=== PATIENT | female | born 1970 | race Caucasian/White ===

== ENCOUNTER 2022-11-06 14:51 | Inpatient (IN) | payer OTHER ==
[2022-11-06] MEDS ORDERED: ONDANSETRON 4 MG/2 ML VIAL IVPUSH ONE ×2 (17:16→22:59)
[2022-11-06] MEDS ORDERED: LACTATED RINGERS SOLUTION 1000 ML INFUS.BAG IV ONE (17:16)
[2022-11-06] MEDS ORDERED: FAMOTIDINE 20 MG/50 ML IVPB 20 MG/50 ML MG IVPB ONE ×2 (17:16→18:07)
[2022-11-06] MEDS ORDERED: MAG HYDROX/AL HYDROX/SIMETH 30 ML UNIT-DOSE CUP PO ONE (17:16)
[2022-11-06] MEDS ORDERED: MAG HYDROX/AL HYDROX/SIMETH 30 ML UNIT-DOSE CUP ONE (18:06)
[2022-11-06 18:37] LABS: PH,URINE 5.5 (5.0-8.0); URINE APPEARANCE CLEAR; URINE BILIRUBIN NEGATIVE (NEGATIVE); URINE COLOR YELLOW; URINE GLUCOSE (UA) NEGATIVE (NEGATIVE); URINE KETONE NEGATIVE (NEGATIVE); URINE LEUK ESTERASE NEGATIVE (NEGATIVE); URINE NITRITE NEGATIVE (NEGATIVE); URINE PROTEIN NEGATIVE (NEGATIVE)
[2022-11-06 18:44] LABS: HEMATOCRIT 41.1 % (32.4-45.2); HEMOGLOBIN 14.1 GM/dL (10.7-15.3); MCH 29.6 pg (25.7-33.7); MCHC 34.2 g/dl (32.0-36.0); MEAN CELL VOLUME 86.7 fl (80-96); MEAN PLT VOLUME 9.2 fl (7.5-11.1); PLATELET COUNT 221 10^3/uL (134-434); RBC 4.74 M/mm3 (3.60-5.2); RDW 13.9 % (11.6-15.6); WHITE BLOOD COUNT 10.3 K/mm3 (4.0-10.0)
[2022-11-06 19:04] LABS: ALBUMIN 3.8 g/dl (3.4-5.0); CALCIUM 8.9 mg/dL (8.5-10.1)
[2022-11-06 19:05] LABS: BLOOD UREA NITROGEN 15.6 mg/dL (7-18)
[2022-11-06 19:07] LABS: CREATININE 0.6 mg/dL (0.55-1.3)
[2022-11-06 19:09] LABS: BILIRUBIN,TOTAL 1.5 mg/dL (0.2-1); TOT PROT 7.6 g/dl (6.4-8.2)
[2022-11-06] MEDS ORDERED: morphine CARPU-JECT 2 MG/1 ML DISP.SYRIN IVPUSH ONE ×2 (20:14→23:55)
[2022-11-06 21:31] LABS: ANISOCYTOSIS 0; MACROCYTOSIS 0
[2022-11-06] MEDS ORDERED: SUCRALFATE 1 GM/10 ML UNIT DOSE CUPS PO ONE (21:57)
[2022-11-06] MEDS ORDERED: SUCRALFATE 1 GM TABLET (FP) ONE (22:01)
[2022-11-06] MEDS ORDERED: ONDANSETRON 4 MG/2 ML VIAL ONE (22:58)
[2022-11-07] MEDS ORDERED: LACTATED RINGERS SOLUTION 1,000 ML/1,000 ML INFUS.BAG IV SCH ×2 (02:15)
[2022-11-07] MEDS ORDERED: TRIMETHOBENZAMIDE HCL 200MG/2ML INJ IM PRN (02:55)
[2022-11-07] MEDS ORDERED: ONDANSETRON 4 MG/2 ML VIAL IVPUSH PRN (03:00)
[2022-11-07 03:13] LABS: HEMATOCRIT 38.6 % (32.4-45.2); HEMOGLOBIN 13.2 GM/dL (10.7-15.3); MCH 29.5 pg (25.7-33.7); MCHC 34.3 g/dl (32.0-36.0); MEAN PLT VOLUME 9.1 fl (7.5-11.1); PLATELET COUNT 214 10^3/uL (134-434); RBC 4.48 M/mm3 (3.60-5.2); RDW 13.9 % (11.6-15.6); WHITE BLOOD COUNT 6.6 K/mm3 (4.0-10.0)
[2022-11-07 03:35] LABS: CALCIUM 8.6 mg/dL (8.5-10.1); MAGNESIUM 2.1 mg/dL (1.8-2.4)
[2022-11-07 03:37] LABS: ALBUMIN 3.4 g/dl (3.4-5.0); BLOOD UREA NITROGEN 10.7 mg/dL (7-18)
[2022-11-07 03:38] LABS: CREATININE 0.5 mg/dL (0.55-1.3)
[2022-11-07 03:40] LABS: PHOSPHOROUS 3.5 mg/dL (2.5-4.9); TOT PROT 6.8 g/dl (6.4-8.2)
[2022-11-07 03:41] LABS: BILIRUBIN,TOTAL 1.8 mg/dL (0.2-1)
[2022-11-07 07:00] LABS: BILIRUBIN,DIRECT 0.9 mg/dL (0.0-0.2)
[2022-11-07] MEDS ORDERED: PIPERACILLIN/TAZOB 3.375 GM 3.375 GM in DEXTROSE 5%-WATER - 50 ML IVPB SCH ×4 (07:15→10:15)
[2022-11-07] MEDS ORDERED: INDOMETHACIN 50 MG RECTAL SUPPOSITORY PR ONE (09:59)
[2022-11-07 10:02] LABS: BASO % 0.3 % (0-2.0); EOS % 0.3 % (0-4.5); HEMOGLOBIN 13.4 GM/dL (10.7-15.3); LYMPH % 19.5 % (8-40); MCH 28.9 pg (25.7-33.7); MCHC 33.5 g/dl (32.0-36.0); MEAN CELL VOLUME 86.2 fl (80-96); MEAN PLT VOLUME 9.4 fl (7.5-11.1); MONO % 5.4 % (3.8-10.2); NEUT % 74.5 % (42.8-82.8); PLATELET COUNT 219 10^3/uL (134-434); RBC 4.64 M/mm3 (3.60-5.2); RDW 13.6 % (11.6-15.6); WHITE BLOOD COUNT 5.8 K/mm3 (4.0-10.0)
[2022-11-07 10:07] LABS: INR 1.32 (0.83-1.09); PROTHROMBIN TIME (PATIENT) 15.3 SEC (9.7-13.0)
[2022-11-07 10:30] LABS: ALBUMIN 3.4 g/dl (3.4-5.0); BLOOD UREA NITROGEN 9.2 mg/dL (7-18)
[2022-11-07 10:33] LABS: CREATININE 0.5 mg/dL (0.55-1.3)
[2022-11-07 10:35] LABS: TOT PROT 6.9 g/dl (6.4-8.2)
[2022-11-07] MEDS ORDERED: PIPERACILLIN/TAZOB 3.375 GM 3.375 GM/50 ML BAG IVPB ONE (10:50)
[2022-11-07] MEDS ORDERED: PANTOPRAZOLE SODIUM 40 MG/100 ML BAG IVPB ONE (10:50)
[2022-11-07] MEDS ORDERED: PHYTONADIONE 10 MG/1 ML AMP IVPB STA (11:02)
[2022-11-07] MEDS ORDERED: DEXAMETHASONE SOD PHOSPHATE 10 MG/1 ML VIAL ONE (11:20)
[2022-11-07] MEDS: DEXTROSE 5%-LACTATED RINGERS 1,000 ML IV SCH ×2 (11:23→23:54)
[2022-11-07] MEDS: PANTOPRAZOLE SODIUM 40 MG VIAL IVPUSH SCH (11:24)
[2022-11-07 15:04] VITALS: RESP 18
[2022-11-07 15:37] VITALS: BMI 31.8
[2022-11-07] MEDS: CEFTRIAXONE 1 GM in DEXTROSE 5%-WATER - 50 ML IVPB SCH (21:45)
[2022-11-08 09:11] LABS: BASO % 0.2 % (0-2.0); EOS % 0.5 % (0-4.5); HEMATOCRIT 35.6 % (32.4-45.2); HEMOGLOBIN 12.2 GM/dL (10.7-15.3); LYMPH % 27.3 % (8-40); MCH 29.7 pg (25.7-33.7); MCHC 34.1 g/dl (32.0-36.0); MEAN CELL VOLUME 86.9 fl (80-96); MEAN PLT VOLUME 9.5 fl (7.5-11.1); MONO % 7.8 % (3.8-10.2); NEUT % 64.2 % (42.8-82.8); PLATELET COUNT 204 10^3/uL (134-434); RDW 13.6 % (11.6-15.6); WHITE BLOOD COUNT 6.3 K/mm3 (4.0-10.0)
[2022-11-08] MEDS: DEXTROSE 5%-LACTATED RINGERS 1,000 ML IV SCH (09:21)
[2022-11-08] MEDS: PANTOPRAZOLE SODIUM 40 MG VIAL IVPUSH SCH (09:35)
[2022-11-08 10:14] LABS: CALCIUM 8.9 mg/dL (8.5-10.1)
[2022-11-08 10:16] LABS: BLOOD UREA NITROGEN 11.3 mg/dL (7-18)
[2022-11-08 10:18] LABS: CREATININE 0.4 mg/dL (0.55-1.3)
[2022-11-08 10:20] LABS: BILIRUBIN,TOTAL 0.4 mg/dL (0.2-1); TOT PROT 6.2 g/dl (6.4-8.2)
[2022-11-08] MEDS ORDERED: DEXTROSE 5%-LACTATED RINGERS 1,000 ML IV SCH (10:20)
[2022-11-08] MEDS: CEFTRIAXONE 1 GM in DEXTROSE 5%-WATER - 50 ML IVPB SCH (10:49)
[2022-11-09 09:53] LABS: HEMOGLOBIN 12.6 GM/dL (10.7-15.3); MCH 29.7 pg (25.7-33.7); MEAN CELL VOLUME 87.6 fl (80-96); MEAN PLT VOLUME 9.4 fl (7.5-11.1); PLATELET COUNT 228 10^3/uL (134-434); RBC 4.23 M/mm3 (3.60-5.2); RDW 13.9 % (11.6-15.6); WHITE BLOOD COUNT 6.2 K/mm3 (4.0-10.0)
[2022-11-09] MEDS ORDERED: ENOXAPARIN NA (PORCINE) 40 MG/0.4 ML DISP.SYRIN SQ SCH (10:00)
[2022-11-09 10:36] LABS: BLOOD UREA NITROGEN 13.2 mg/dL (7-18)
[2022-11-09 10:37] LABS: ALBUMIN 3.2 g/dl (3.4-5.0)
[2022-11-09 10:40] LABS: CREATININE 0.6 mg/dL (0.55-1.3); PHOSPHOROUS 3.5 mg/dL (2.5-4.9)
[2022-11-09 10:41] LABS: TOT PROT 6.5 g/dl (6.4-8.2)
[2022-11-09 10:42] LABS: BILIRUBIN,TOTAL 0.4 mg/dL (0.2-1)
[2022-11-09 11:01] VITALS: BP 127/69; PULSE 59; TEMP 98.1
== END 2022-11-09 14:08 | disposition home or self-care (01) | DRG 282 ==
LOC: JER 14:51 → JERBED 11-07 00:38 → J7W 11-07 00:54 → UNDODISOB 11-07 01:14 → OBSVTOIN 11-07 02:02 → JERBED 11-07 08:38 → J5S 11-07 15:11
PROVIDERS: ADMIT Internal Medicine; ATTEND Internal Medicine
DX: K85.10 Biliary acute pancreatitis without necrosis or infection (principal); K83.09 Other cholangitis; K76.0 Fatty (change of) liver, not elsewhere classified; D72.829 Elevated white blood cell count, unspecified; R74.01 Elevation of levels of liver transaminase levels; E66.9 Obesity, unspecified; Z68.31 Body mass index [BMI] 31.0-31.9, adult; E78.5 Hyperlipidemia, unspecified; R19.7 Diarrhea, unspecified
CPT/HCPCS: 0241U-QW; 36415; 71045-TC-FY; 74177-TC; 74181-TC; 76705-TC; 80053; 80061; 81003; 82248; 83690; 83735; 84100; 84484; 84703; 85025; 85027; 85610; 86140; 87040; 87086; 93005; 93010; 99285-25; G0378; Q9967

== ENCOUNTER 2025-03-05 10:35 | Emergency (ER) | payer OTHER ==
[2025-03-05 10:44] VITALS: BP 123/66; PULSE 71; RESP 20; TEMP 98.5; BMI 35.6
[2025-03-05] MEDS ORDERED: ACETAMINOPHEN 500 MG TABLET (FP) ONE (11:20)
[2025-03-05] MEDS: ACETAMINOPHEN 500 MG TABLET (FP) PO ONE (11:35)
[2025-03-05] MEDS ORDERED: LIDOCAINE 5% TOPICAL PATCH ONE (11:56)
[2025-03-05] MEDS ORDERED: METHOCARBAMOL 500 MG TABLET ONE (11:59)
[2025-03-05] MEDS: LIDOCAINE 5% TOPICAL PATCH TP ONE (12:03)
[2025-03-05] MEDS: METHOCARBAMOL 500 MG TABLET PO ONE (12:09)
[2025-03-05] MEDS ORDERED: LIDOCAINE PATCH REMOVAL MC ONE (22:00)
== END 2025-03-05 12:50 | disposition home or self-care (01) ==
LOC: JERFT 10:35
DX: M51.360 Other intervertebral disc degeneration, lumbar region with discogenic back pain only (principal); W01.0XXA Fall on same level from slipping, tripping and stumbling without subsequent striking against object, initial encounter
CPT/HCPCS: 72100-TC-FY; 99283-25